=== PATIENT | female | born 1970 | race Caucasian/White ===

== ENCOUNTER 2020-10-01 12:15 | Outpatient (REF) | payer OTHER, SELFPAY ==
[2020-10-01 12:41] LABS: MANUAL DIFF FLAG NO
[2020-10-01 12:52] LABS: Basophils Absolute Auto 0.1 X10*3/uL (0.0-0.2); Basophils Percent Auto 1.1 % (0-2); Eosinophils Absolute Auto 0.2 X10*3/uL (0.0-0.4); Eosinophils Percent Auto 3.5 % (0-4); Hematocrit 45.3 % (37-47); Hemoglobin 15.2 g/dl (12.0-16.0); Imm Gran Abs Auto 0.01 X10*3/uL (0.00-0.03); Imm Gran Pct Auto 0.2 % (0.0-0.4); Lymphocytes Absolute Auto 2.6 X10*3/uL (1.2-4.9); Lymphocytes Percent Auto 38.7 % (20-40); Mean Corpuscular HGB Conc 33.6 g/dl (31.0-35.0); Mean Corpuscular Hemoglobin 31.3 pg (27.0-33.0); Mean Corpuscular Volume 93.2 fL (80-98); Mean Platelet Volume 10.7 fL (9.4-12.3); Monocytes Absolute Auto 0.4 X10*3/uL (0.1-1.2); Neutrophils Absolute Auto 3.4 X10*3/uL (2.0-8.3); Neutrophils Percent Auto 50.5 % (45-73); Platelet Count 198 X10*3/uL (160-400); Red Blood Count 4.86 X10*6/uL (4.20-5.50); Red Cell Distribution Width 13.5 % (11.0-16.0); White Blood Count 6.7 X10*3/uL (4.8-10.8)
[2020-10-01 13:10] LABS: Alanine Aminotransferase 8 U/L (0-31); Albumin Level 4.8 g/dL (3.5-5.0); Alkaline Phosphatase 57 U/L (39-117); Anion Gap 15 (12-20); Aspartate Amino Transferase 15 U/L (5-31); Bilirubin Total 0.7 mg/dL (0.0-1.0); Blood Urea Nitrogen 16 mg/dL (9-16); Calcium 9.8 mg/dL (8.4-10.2); Carbon Dioxide 23 mmol/L (22-29); Chloride 106 mmol/L (96-108); Cholesterol 192 mg/dL; Estimated Glomerular Filt Rate 58; Glucose Random 99 mg/dL (60-115); HDL Cholesterol 51 mg/dL; LDL Cholesterol Calculated 124 mg/dl; Potassium 4.5 mmol/L (3.3-5.1); Sodium 139 mmol/L (135-145); Total Protein 7.6 g/dL (6.5-8.0); Triglycerides 85 mg/dL
[2020-10-01 13:34] LABS: Free T4 (Free Thyroxine) 0.95 ng/dL (0.71-1.85); Thyroid Stimulating Hormone 0.76 uIU/mL (0.32-4.0); Vitamin D 25-OH Total 27.8 ng/mL (>30)
[2020-10-01 14:05] LABS: Glucose Urine UA NEG (NEG); Leukocyte Esterase Urine NEG (NEG); Nitrite Urine NEG (NEG); Specific Gravity - Urine 1.025 (1.005-1.025); Urine Blood NEG (NEG); Urine Ketones 5 MG/DL (NEG); Urine Protein 1+ MG/DL (NEG-TRACE)
[2020-10-01 14:15] LABS: Appearance Urine CLEAR; Color Urine AMBER
[2020-10-01 14:15] LABS: Folate 13.4 ng/mL (> or = 4.0); Vitamin B12 434 pg/mL (200-900)
[2020-10-01 14:48] LABS: Bacteria Urine 1+ /LPF; Mucus Urine 2+ /LPF; RBC Urine 0-2 /HPF (0); Squamous Epithelial Cell Urine 1+ /LPF; WBC Urine 0-2 /HPF (0-4)
== END 2020-10-01 12:16 | disposition home or self-care (01) ==
LOC: HO.LAB 12:15
PROVIDERS: PCP Internal Medicine; Visit Provider Internal Medicine
DX: Z00.00 Encounter for general adult medical examination without abnormal findings (principal); K21.9 Gastro-esophageal reflux disease without esophagitis; E78.00 Pure hypercholesterolemia, unspecified
CPT/HCPCS: 36415; 80053; 80061; 81001; 82306; 82607; 82746; 84439; 84443; 85025; 86900; 86901

== ENCOUNTER 2021-07-10 16:44 | Outpatient (REF) | payer OTHER, SELFPAY | END 2021-07-10 16:45 | disposition home or self-care (01) | LOC: HO.LNP 16:44 | PROVIDERS: Visit Provider Nurse Practitioner Family | DX: R10.9 Unspecified abdominal pain (principal) | CPT/HCPCS: 87086 ==

== ENCOUNTER 2022-12-27 15:03 | Outpatient (AMB) | payer OTHER, SELFPAY ==
[2022-12-27 15:07] VITALS: BP 102/62; PULSE 87; O2SAT 96; BMI 22.7
--- NOTE | 2022-12-27 15:07 | MHC.PC.OV ---
Vital Signs 12/27/22 15:07 Height 5 ft 4 in Weight 132 lb BMI 22.7 BP 102/62 Blood Pressure Location Lt brachial Position Sitting Pulse 87 Pulse Source Pulse Oximeter Temp Source Skin Pulse Oximetry (%) 96 Oxygen Delivery Method Room Air Intake Visit Reasons: annual PE Intake Note: Patient is here today for a physical. Allergies No Known Allergies Allergy (Verified 12/27/22 15:08) Medication List - Last Reconciled 12/27/22 by Andrew Garcia MD albuterol sulfate 90 mcg/actuation (ProAir HFA) 2 puffs inhalation Q4-6H PRN escitalopram oxalate 20 mg PO DAILY fluticasone propionate 110 mcg/actuation (Flovent HFA) 1 puff inhalation Q12H hydroxyzine HCl 25 mg PO BID PRN 30 days Tobacco use date assessed: 12/27/22 HPI annual PE HPI Details 52-year-old female with asthma generalized anxiety disorder coming in physical exam. Last seen in January 2022 blood work was requested. anxious and psychiatrist and therapist left. [facility] Medical History (Updated 12/27/22 @ 15:19 by Andrew Garcia MD) Allergic rhinitis Asthma Attention deficit disorder GERD (gastroesophageal reflux disease) Impaired glucose tolerance Left ear pain Left patella fracture Patellar dislocation Right ACL tear Surgical History No history of previous surgery Family History Mother No problems noted. Father No problems noted. Social History Housing: Apartment Alcohol intake: never Patient Tobacco Use Status: Never used Tobacco e-Cigarette/Vaping Use: Never Used service: No Current occupational status: unemployed Cognitive needs: No Hearing needs: No Vision needs: No Questionnaire PHQ-9 Over the last 2 weeks, how often have you been bothered by any of the following problems? 1. Little interest or pleasure in doing things: nearly every day 2. Feeling down, depressed, or hopeless: nearly every day 3. Trouble falling or staying asleep, or sleeping too much: nearly every day 4. Feeling tired or having little energy: nearly every day 5. Poor appetite or overeating: not at all 6. Feeling bad about yourself - or that you are a failure or have let yourself or your family down: not at all 7. Trouble concentrating on things, such as reading the newspaper or watching television: several days 8. Moving or speaking so slowly that other people could have noticed. Or the opposite - being so fidgety or restless that you have been moving around a lot more than usual: several days 9. Thoughts that you would be better off or of hurting yourself in some way: not at all Total score: 14 Depression Screening Interpretation: Positive Source: Developed by Drs. Wes Martines, Laz Hale and colleagues, with an educational val from [employer]. Thrive Questionnaire Date Thrive assessed: 10/27/21 WINNIE-7 AMB Questionnaire WINNIE-7 Date WINNIE - 7 assessed: 12/27/22 Feeling nervous, anxious, or on edge: 3 = Nearly every day Not being able to stop or control worryin = Nearly every day Worrying too much about different things: 3 = Nearly every day Trouble relaxin = Nearly every day Being so restless that it is hard to sit still: 3 = Nearly every day Becoming easily annoyed or irritable: 3 = Nearly every day Feeling afraid as if something awful might happen: 3 = Nearly every day Total WINNIE-7 score (0-4 normal; 5-9 mild; 10-14 moderate; 15-21 severe): 21 Source: Developed by Drs. Wes Martines, Laz Hale and colleagues, with an educational val from [employer]. Review of Systems Const Denies poor appetite and Denies weakness Eyes Denies no additional complaints ENT Reports Normal hearing present, Denies dizziness, Denies nasal congestion, Denies tinnitus and Denies sore throat Card Denies chest pain, Denies syncope, Denies rapid heart rate and Denies dyspnea Resp Denies cough and Denies dyspnea GI Denies change in stool character, Reports constipation, Denies diarrhea, Denies nausea and Denies vomiting Denies urinary frequency, Denies difficulty voiding and Denies dysuria Neuro Reports Normal hearing present, Denies confusion, Denies dizziness, Denies syncope and Denies weakness Psych Denies confusion Physical exam (Primary Care) Vital Signs: Oxygen Delivery Method Room Air 12/27/22 15:07 BMI result Body Mass Index 22.7 Tobacco/Smoking Status: Tobacco use Status Tobacco use date assessed 10/27/21 02/05/22 15:33 Patient Tobacco Use Status Never used Tobacco 02/05/22 15:33 e-Cigarette/Vaping Use Never Used 02/05/22 15:33 Depression Screening Interpretation: Positive Thrive Assessment: Date of Thrive Assessment Date Thrive assessed 10/27/21 02/05/22 15:33 Const General: No confusion Orientation/consciousness: No confusion HENMT Head: Yes normocephalic Ears: external ears normal and TM's normal bilaterally Face and sinus: Yes normal facial exam Mouth: moist mucous membranes Throat: Yes tonsils normal Eyes Conjunctivae: conjunctivae normal Pupils: Equal, round and reactive pupils present and Pupil accommodation reflex normal Direct Ophthalmoscopy: normal light reflex Neck Neck: No lymphadenopathy Thyroid: Thyroid normal Chest Chest palpation & inspection: normal inspection of the chest Resp Effort & Inspection: normal respiratory effort and no audible wheezes Auscultation: clear to auscultation bilaterally, no crackles, no wheezes and lung sounds not diminished Cardio Rate: regular rate Rhythm: regular rhythm Peripheral pulses: radial pulses present and dorsalis pedis present GI Palpation (GI): no masses Auscultation: normal bowel sounds and normoactive bowel sounds Rectal Exam - Female: deferred Skin General skin exam: no rashes or lesions noted Rashes: no rashes Neuro General: No confusion Cranial nerves: Yes Equal, round and reactive pupils present and Yes Normal hearing present Cognition (Neuro): normal cognition Gait exam (Neuro): Normal gait present Motor exam (neuro): 5/5 motor strength present throughout Deep tendon reflexes (DTR's): Right brachioradialis reflex intensity grade: 2+, Left brachioradialis reflex intensity grade: 2+, Right patellar reflex intensity grade: 2+ and Left patellar reflex intensity grade: 2+ Extrem General: No edema Assessment and Plan Assessment & Plan (1) Annual physical exam: Code(s): Z00.00 - Encounter for general adult medical examination without abnormal findings (2) GERD (gastroesophageal reflux disease): Code(s): K21.9 - Gastro-esophageal reflux disease without esophagitis Qualifiers: Esophagitis presence: without esophagitis Qualified Code(s): K21.9 - Gastro-esophageal reflux disease without esophagitis Plan: Avoid the foods that causes that usually spicy foods, tomato products, juices, coffee, soda and foods that your sensitive to. After eating do not lie down, allow 3-4 hours before in lie down. And keep the head of bed above 30 degrees to avoid the acid from going up. (3) Asthma: Code(s): J45.909 - Unspecified asthma, uncomplicated Qualifiers: Asthma complication type: uncomplicated Asthma persistence: intermittent Asthma severity: mild Qualified Code(s): J45.20 - Mild intermittent asthma, uncomplicated Plan: Continue with inhaler as needed (4) Generalized anxiety disorder: Comment: [place] [facility] Code(s): F41.1 - Generalized anxiety disorder Plan: Continue with counseling and therapy (5) Colon cancer screening: Code(s): Z12.11 - Encounter for screening for malignant neoplasm of colon Plan: Reminded about colonoscopy (6) Back pain: Code(s): M54.9 - Dorsalgia, unspecified (7) Constipation: Code(s): K59.00 - Constipation, unspecified Orders: Orders XR chest 2V Today M54.9 - Dorsalgia, unspecified Referrals Gastroenterology Referral K21.9 - Gastro-esophageal reflux disease without esophagitis, Z12.11 - Encounter for screening for malignant neoplasm of colon Medications: New sennosides-docusate sodium 8.6-50 mg (Senna Plus) 2 tab-caps (2 x 8.6-50 mg) PO BEDTIME 60 caps 2RF K59.00 - Constipation, unspecified escitalopram oxalate 20 mg PO DAILY 90 tabs 1RF F41.1 - Generalized anxiety disorder Changed From hydroxyzine HCl 25 mg PO BID 30 days PRN 60 tabs 1RF anxiety F41.1 - Generalized anxiety disorder To hydroxyzine HCl 25 mg PO BID 90 days PRN 180 tabs 0RF anxiety F41.1 - Generalized anxiety disorder Coding Level of Care Code Est Pt Prev Care 40-64y(69103) Diagnoses Annual physical exam Z00.00 GERD (gastroesophageal reflux disease) K21.9 Esophagitis presence: without esophagitis Asthma J45.20 Asthma complication type: uncomplicated Asthma persistence: intermittent Asthma severity: mild Generalized anxiety disorder F41.1 Colon cancer screening Z12.11 Back pain M54.9 Constipation K59.00 Additional Codes PHQ-9 - 48919 - PHQ-9 Billing: Y ([id number])
== END 2022-12-27 15:33 | disposition home or self-care (01) ==
PROVIDERS: PCP Internal Medicine; Visit Provider Internal Medicine
DX: Z00.00 Encounter for general adult medical examination without abnormal findings (principal); K21.9 Gastro-esophageal reflux disease without esophagitis; J45.20 Mild intermittent asthma, uncomplicated; F41.1 Generalized anxiety disorder; Z12.11 Encounter for screening for malignant neoplasm of colon; M54.9 Dorsalgia, unspecified; K59.00 Constipation, unspecified
CPT/HCPCS: 99396

== ENCOUNTER 2024-08-21 14:15 | Outpatient (AMB) | payer OTHER, SELFPAY ==
[2024-08-21 14:21] VITALS: BP 102/70; PULSE 68; O2SAT 98; BMI 23.4
--- NOTE | 2024-08-21 14:21 | MHC.PC.OV ---
Vital Signs 08/21/24 14:21 Height 5 ft 4 in Weight 136 lb 4 oz BMI 23.4 BP 102/70 Blood Pressure Location Lt brachial Position Sitting Pulse 68 Pulse Source Pulse Oximeter Pulse Oximetry (%) 98 Oxygen Delivery Method Room Air Intake Visit Reasons: pain all over body Health Education Specialist Required: No Accompanied by: Self / Same As Patient Allergies No Known Allergies Allergy (Verified 08/21/24 14:22) Tobacco use date assessed: 08/21/24 Dental Screening Dental Screen Date: 08/21/24 Did you have a dental visit in the last 12 months?: Yes Did you have a dental problem in the last 6 months where you did not have access to dental care?: No Was dental information given to patient?: Patient has dentist HPI pain all over body HPI Details pain R calf and posterior achilles and R knee . pain states had dislocation before . [facility] Medical History (Updated 08/21/24 @ 14:45 by Andrew Garcia MD) Left ear pain Left patella fracture Right ACL tear Patellar dislocation Impaired glucose tolerance GERD (gastroesophageal reflux disease) Attention deficit disorder Allergic rhinitis Asthma Surgical History No history of previous surgery Family History Mother No problems noted. Father No problems noted. Social History Housing: Apartment Alcohol intake: never Patient Tobacco Use Status: Never used Tobacco e-Cigarette/Vaping Use: Never Used service: No Current occupational status: unemployed Cognitive needs: No Hearing needs: No Vision needs: No Questionnaire PHQ-9 Over the last 2 weeks, how often have you been bothered by any of the following problems? 1. Little interest or pleasure in doing things: nearly every day 2. Feeling down, depressed, or hopeless: nearly every day 3. Trouble falling or staying asleep, or sleeping too much: nearly every day 4. Feeling tired or having little energy: nearly every day 5. Poor appetite or overeating: not at all 6. Feeling bad about yourself - or that you are a failure or have let yourself or your family down: not at all 7. Trouble concentrating on things, such as reading the newspaper or watching television: several days 8. Moving or speaking so slowly that other people could have noticed. Or the opposite - being so fidgety or restless that you have been moving around a lot more than usual: several days 9. Thoughts that you would be better off or of hurting yourself in some way: not at all Total score: 14 Depression Screening Interpretation: Positive Depression Screening Done: Yes Source: Developed by Drs. Wes Martines, Vanesa Griffin, Laz Franco and colleagues, with an educational val from [employer]. Thrive Questionnaire Date Thrive assessed: 08/21/24 I am a: Patient What is your living situation today?: I have a steady place to live Within the past 12 months, did the food you bought not last and you didn't have the money to get more?: Never true Within the past 12 months, did you worry whether your food would run out before you got money to buy more?: Never true Do you have trouble paying for medicines?: No Do you have trouble getting transportation to medical appointments?: No Do you have trouble paying your heating and electricity bill?: No Do you have trouble taking care of your child, family member or friend?: No Do you have trouble with day-to-day activities such as bathing, preparing meals, shopping, managing finances, etc.?: No Are you currently unemployed and looking for a job?: No Are you interested in more education?: No Please select the resources that you would like help with: None Currently or been in a relationship where the following occur: No concerns reported THRIVE Score: 0 AUDIT C Alcohol Use Questionnaire (AUDIT-C) 1. How often do you have a drink containing alcohol?: Never 2. How many drinks containing alcohol do you have on a typical day when you are drinking?: 1 or 2 (none) 3. How often do you have six or more drinks on one occasion?: Never Total Score: 0 Score Reviewed/Action Taken: Yes WINNIE-7 AMB Questionnaire WINNIE-7 Date WINNIE - 7 assessed: 08/21/24 Feeling nervous, anxious, or on edge: 3 = Nearly every day Not being able to stop or control worryin = Nearly every day Worrying too much about different things: 3 = Nearly every day Trouble relaxin = Nearly every day Being so restless that it is hard to sit still: 3 = Nearly every day Becoming easily annoyed or irritable: 3 = Nearly every day Feeling afraid as if something awful might happen: 3 = Nearly every day Total WINNIE-7 score (0-4 normal; 5-9 mild; 10-14 moderate; 15-21 severe): 21 Source: Developed by Drs. Wes Martines, Vanesa Griffin, Laz Franco and colleagues, with an educational val from [employer]. Physical exam (Primary Care) Vital Signs: Last Vital Signs Pulse 68 08/21/24 14:21 BP 102/70 08/21/24 14:21 Pulse Ox 98 08/21/24 14:21 Oxygen Delivery Method Room Air 08/21/24 14:21 BMI result Body Mass Index 23.4 Tobacco/Smoking Status: Tobacco use Status Tobacco use date assessed 08/21/24 08/21/24 14:28 Patient Tobacco Use Status Never used Tobacco 08/21/24 14:28 e-Cigarette/Vaping Use Never Used 08/21/24 14:28 PHQ-9: PHQ-9 Score PHQ-9: Total score 14 08/21/24 14:36 Depression Screening Interpretation: Positive Thrive Assessment: Date of Thrive Assessment Date Thrive assessed 08/21/24 08/21/24 14:28 Currently or been in a relationship where the following occur: No concerns reported Const General: alert; No acute distress Eyes Conjunctivae: conjunctivae normal Resp Auscultation: clear to auscultation bilaterally Cardio Rate: regular rate Rhythm: regular rhythm GI Inspection: Yes normal to inspection Extrem General: Yes normal to inspection and No edema Coding Level of Care Code Est Pt Level 4 (33156) Complex EM visit Add On G2211 Diagnoses Mild intermittent asthma without complication J45.20 Asthma complication type: uncomplicated Asthma persistence: intermittent Asthma severity: mild Gastroesophageal reflux disease without esophagitis K21.9 Esophagitis presence: without esophagitis Generalized anxiety disorder F41.1 Colon cancer screening Z12.11 Achilles tendinitis of right lower extremity M76.61 Knee pain, right M25.561 Palpitations R00.2 Assessment & Plan Assessment & Plan (1) Asthma: Code(s): J45.909 - Unspecified asthma, uncomplicated Category: Medical Qualifiers: Asthma complication type: uncomplicated Asthma persistence: intermittent Asthma severity: mild Qualified Code(s): J45.20 - Mild intermittent asthma, uncomplicated Plan: Patient on albuterol and Flovent. (2) GERD (gastroesophageal reflux disease): Code(s): K21.9 - Gastro-esophageal reflux disease without esophagitis Category: Medical Qualifiers: Esophagitis presence: without esophagitis Qualified Code(s): K21.9 - Gastro-esophageal reflux disease without esophagitis Plan: Avoid the foods that causes that usually spicy foods, tomato products, juices, coffee, soda and foods that your sensitive to. After eating do not lie down, allow 3-4 hours before in lie down. And keep the head of bed above 30 degrees to avoid the acid from going up. (3) Generalized anxiety disorder: Comment: [facility] Code(s): F41.1 - Generalized anxiety disorder Category: Medical Plan: Continue with counseling and therapy on Lexapro 20 mg once a day (4) Colon cancer screening: Code(s): Z12.11 - Encounter for screening for malignant neoplasm of colon Category: Medical (5) Achilles tendinitis of right lower extremity: Code(s): M76.61 - Achilles tendinitis, right leg Category: Medical (6) Knee pain, right: Code(s): M25.561 - Pain in right knee Category: Medical (7) Palpitations: Code(s): R00.2 - Palpitations Category: Medical Plan History of Present Illness The patient is a 54-year-old female presenting for a follow-up on musculoskeletal and cardiac concerns. She has a known history of ACL injury in her right knee, which was never surgically corrected, leading to episodic instability and pain. This has notably affected her function, particularly during stair climbing. Additionally, she reports intermittent right Achilles tendon pain lasting several weeks, without clear inciting trauma or exacerbation from work-related activities. Chronic lower back pain, likely of sacral origin, shows a recent increase in severity and impacts her respiratory comfort during episodes. Daily palpitations, a recurrent issue since childhood, have reemerged with increased frequency and disruption without a previous clear etiological diagnosis. 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 - Physical activity: Involves moderate caregiving tasks, no noted excessive or strenuous physical activities Review of Systems - Musculoskeletal: Reports pain in the right knee and ankle, instability, and prior dislocation history - Cardiovascular: Reports daily episodes of palpitations, irregular heartbeat - Back: Reports periodic severe locking pain in the lower back - General: Reports feeling nervous about heart symptoms Physical Exam Results Plan For the identified musculoskeletal issues, an x-ray for the right knee will complement targeted physical therapy aimed at improving joint stability post-ACL injury. Achilles tendon pain lacks overt signs of tear or rupture, so conservative management will be observed without immediate imaging. Lower back pain will be further characterized by the x-ray to determine potential arthritic changes. The patient's cardiac arrhythmias will be analyzed using a Holter monitor, and concurrent documentation of episodes will aid in identifying rhythms of concern. Blood panels will provide insight into potential contributory systemic conditions. Asthma and GERD management regimens will be maintained as per current prescriptions while awaiting further diagnostics. Patient was informed and verbally consented to the use of an ambient scribe for clinic note documentation during this visit. Discussion Notes I discussed with the patient the differential diagnoses for her musculoskeletal pain and the potential need for imaging and physical therapy. The knee x-ray will help assess structural concerns post-ACL injury, and physical therapy should support muscle strengthening around the knee joint. For cardiac symptoms, I recommended a Holter monitor to evaluate her frequent palpitations, explaining this would help determine any need for further cardiac evaluation. I advised on the importance of maintaining a symptom diary for correlation. The potential for arthritis in her lower back prompted the decision for imaging. I recommended comprehensive blood work to understand systemic contributors. We discussed preventive health, including the mammogram's status, colonoscopy referral, and immunization status, with an understanding of her preferences regarding vaccines. Lastly, the need for routine reviewal of medication compliance, particularly regarding GERD and asthma management, was reinforced. Patient Instructions - Attend scheduled x-ray and physical therapy sessions - Undergo the Holter monitor test and maintain an accompanying symptom diary - Perform the recommended fasting blood work - Continue taking asthma (Albuterol, Flovent) and GERD medications as prescribed - Follow up on colonoscopy referral and schedule accordingly - Be attentive to any worsening symptoms and seek care as needed - Practice careful safety measures during flu, COVID, and RSV seasons Orders: Orders PT Evaluation and Treatment Today M25.561 - Pain in right knee, M76.61 - Achilles tendinitis, right leg Complete Blood Count Auto Diff Today F41.1 - Generalized anxiety disorder Free T4 (Free Thyroxine) Today F41.1 - Generalized anxiety disorder Thyroid Stimulating Hormone Today F41.1 - Generalized anxiety disorder Vitamin B12 and Folate Today F41.1 - Generalized anxiety disorder XR knee RT 2V Today M25.561 - Pain in right knee XR lumbar spine 2-3V Today M54.9 - Dorsalgia, unspecified Comprehensive Met. Panel Today F41.1 - Generalized anxiety disorder Lipid Panel Today E78.00 - Pure hypercholesterolemia, unspecified, F41.1 - Generalized anxiety disorder Vitamin D 25-OH Total Today F41.1 - Generalized anxiety disorder ECG 3 day holter monitor Today R00.2 - Palpitations Referrals Gastroenterology Referral Z12.11 - Encounter for screening for malignant neoplasm of colon
--- OUTSIDE RECORDS SUMMARY | 2024-08-21 17:30 | XMS_ITS | Patient Health Record ---
Author Organization [employer] [facility] Address [address] [place] [address] Care Team Providers Care Training Coordinator Name Role Phone JOSE GAMBOA M.D. Primary Care Provider Ettaa DAVID Boothe Unavailable [phone] Reason For Referral No Information Medications Medication SIG (Take, Route, Frequency, Duration) Notes Start Date End Date Status ProAir HFA 108 (90 Base) MCG/ACT TAKE 2 PUFFS BY MOUTH EVERY 6 HOURS Inhalation for 25 Active Omeprazole 20 MG TAKE 1 CAPSULE BY MO UTH EVERY DAY Oral for 30 Active hydrOXYzine HCl 25 MG TAKE 1 3 TABLETS B Y MOUTH ONCE DAILY NEEDED FOR 30 DAYS Oral for 30 Active Escitalopram Oxalate 10 MG TAKE 1 TABLET BY MOUTH EVERY DAY Oral for 30 Active Clobetasol Propionate 0.05 % 1 application to affected area Externally twice weekly 12/28/2018 Active Social History Tobacco Use: Social History Observation Description Date Details (start date - stop date) Never Smoker NA - NA Tobacco Use/Smoking Question Answer Notes Are you a nonsmoker Alcohol Screen (Audit-C) Question Answer Notes Did you have a drink containing alcohol in the p ast year? No Points 0 Interpretation Negative Sexual History Question Answer Notes Had sex in the past 12 months (vaginal, oral, or anal)? No Have you ever had a Sexually transmitted disease ? 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 Plan Of Treatment Pending Test Test Name Order Date THIN PREP,HPV,OBDULIO IF HPV+ (>29YR)(DIAG) 11/28/2018 MM Digital Screening Mammogram 3D 2019 MM Digital Screening Mammogram 3D 2018 Insurance Providers Payer Name Payer Address Payer Phone Subscriber Number Group Number Insured Name Patient Relationship to Insured Coverage Start Date Coverage End Date [facility] [address] [address] [place] [id number] [phone] [id number] VERONICA PEDRAZA Self - patient is the insured Medical (General) History Medical History History ICD Code Disorder of breast, unspecified N64.9 Other asthma J45.998 Attention-deficit hyperactivity disorder , unspecified type F90.9 Gastro-esophageal reflux disease with es ophagitis K21.0 Pruritus vulvae L29.2 Other specified noninflammatory disorder s of vulva and perineum N90.89 Surgical History Surgery Date(Month/Year) Left Breast Biopsy Hospitalization History Reason Date(Month/Year) 2 Vaginal Deliveries
--- OUTSIDE RECORDS SUMMARY | 2024-08-21 17:30 | XMS_ITS | Clinical Summary ---
Author Organization [employer] [facility] Address [address] 7[address] [place] [address] Care Team Providers Care Unclaimed Property Manager Name Role Phone Unavailable Primary Care Provider Unavailabl e Allergies No known active allergies Medications escitalopram (Lexapro) 20 MG tablet 07/04/2023 Active hydrOXYzine HCl (Atarax) 25 MG tablet 07/07/2023 Active Social History Tobacco Use Types Packs/Day Years Used Date Smoking Tobacco: Never Passive Smoke Exposure: Never Smokeless Tobacco: Never Tobacco Cessation:Counseling Given: No Alcohol Use Standard Drinks/Week Comments Never 0 (1 standard drink = 0.6 oz pur e alcohol) Comments Unknown Sex and Gender Information Value Date Recorded Sex Assigned at Female 05/10/2023 12:02 PM EST Legal Sex Female 11:57 AM EST Gender Identity Female 05/10/2023 12:02 PM EST Sexual Orientation Choose not to disclose 2022 12:02 PM EST Last Filed Vital Signs Vital Sign Reading Time Taken Comments Blood Pressure 124/76 05/10/2023 1:21 PM EST Pulse - - Temperature - - Respiratory Rate - - Oxygen Saturation - - Inhaled Oxygen Concentration - - Weight - - Height - - Body Mass Index - - Plan of Treatment Health Maintenance Due Date Last Done Comments CT Colonography 1969 Colonoscopy 1969 Colorectal Cancer Screening 1969 Dental Oral Exam 1969 Dental Prophylaxis 1969 Dental X-Ray: Bitewings 1969 Depression Screening 1969 FIT DNA/Cologuard 1969 FIT 1969 FOBT 1969 HIV Screening 1969 SDOH Screening 1969 Sigmoidoscopy 1969 Alcohol/Substance Use Screening 1981 Hepatitis C Screening 1987 Hepatitis B Vaccines (1 of 3 - 19+ 3-dose series) 1988 Pap Smear 1990 Cervical Cancer Screening 1999 HPV/Cotest 1999 Mammogram 2009 Pneumococcal Vaccine: 50+ Years (1 of 1 - PCV) 2019 Zoster Vaccines (1 of 2) 2019 COVID-19 Vaccine (1 - 2023-2 5 season) 2024 Influenza Vaccine (#1) 2024 9, 03/24/2016 Tobacco Screening 07/11/2024 07/11/2023 DTaP/Tdap/Td Vaccines (2 - T d or Tdap) 03/24/2026 03/24/2016 Dental X-Ray: Full Mouth 05/11/2026 05/10/2023 RSV Patients and Patients Aged 60 years or older (1 - 1-dose 75+ series) 2044 HIB Vaccines Aged Out No longer eligi ble based on patient's age to complete this topic HPV Vaccines Aged Out No longer eligi ble based on patient's age to complete this topic Hepatitis A Vaccines Aged Out No long er eligible based on patient's age to complete this topic IPV Vaccines Aged Out No longer eligi ble based on patient's age to complete this topic Meningococcal Vaccine Aged Out No brayan ari eligible based on patient's age to complete this topic RSV under 20 months Aged Out No longe r eligible based on patient's age to complete this topic Rotavirus Vaccines Aged Out No longer eligible based on patient's age to complete this topic Procedures Procedure Name Priority Date/Time Associated Diagnosis Comments PANORAMIC RADIOGRAPHIC IMAGE Routine 05/10/2023 1:00 PM EST from Last 3 Months or Most Recently Relevant to Health Maintenance Insurance [facility] MEDICAID STAND ADULT
--- OUTSIDE RECORDS SUMMARY | 2024-08-21 17:30 | XMS_ITS | Clinical Summary ---
Author Organization [employer] [facility] ity Address [address] [place] [address] Care Team Providers Care Nursing Care Partner Name Role Phone Andrew Garcia MD Primary Care Provider [phone] Surgical History Surgery Date Site/Laterality Comments OTHER SURGICAL HISTORY PROCEDURE: DENIES PREVIOUS SURGERY Family History Medical History Relation Name Comments Breast cancer Neg Hx Colon cancer Neg Hx Ovarian cancer Neg Hx Uterine cancer Neg Hx Relation Name Status Comments Brother 1 Alive Brother 2 Alive Father Alive Mother Alive Sister 1 Alive Sister 2 Alive Sister 3 Alive Sister 4 Alive Sister 5 Alive Sister 6 Alive Social History Tobacco Use Types Packs/Day Years Used Date Smoking Tobacco: Light Smoker Alcohol Use Standard Drinks/Week Comments Yes 0 (1 standard drink = 0.6 oz pur e alcohol) Comments Unknown Sex and Gender Information Value Date Recorded Sex Assigned at Not on file Legal Sex Female 1:00 AM EST Gender Identity Not on file Sexual Orientation Not on file Obstetrics History Plan of Treatment Health Maintenance Due Date Last Done Comments Breast Cancer Screening 1969 DTaP,Tdap,and Td Vaccines (1 - Tdap) 1988 Hepatitis B Vaccines (1 of 3 - 19+ 3-dose series) 1988 Cervical Cancer Screening: P ap Smear 1990 Pneumococcal Vaccine: 50+ Ye ars (1 of 1 - PCV) 2019 Zoster Vaccines (1 of 2) 2019 COVID-19 Vaccine (2023-2 5 season) 2024 Influenza Vaccine (#1) 2024 HIB Vaccines Aged Out No longer eligi [...] on patient's age to complete this topic MMR Vaccines Aged Out No longer eligi ble based on patient's age to complete this topic Meningococcal ACWY Vaccine Aged Out N o longer eligible based on patient's age to complete this topic Meningococcal B Vacine Aged Out No lo nger eligible based on patient's age to complete this topic Pneumococcal Vaccine: Pediat rics (0 to 5 Years) and At-Risk Patients (6 to 64 Years) Aged Out No longer eligible b ased on patient's age to complete this topic RSV Immunization Patients Un maura 20 months Aged Out No longer eligible b ased on patient's age to complete this topic Varicella Vaccines Aged Out No longer eligible based on patient's age to complete this topic Care Teams Nursing Care Partner Relationship Specialty Start Date End Date Andrew Garcia MD [address] [place] [address] [address] [facility] [place] [address] PCP - General Internal Medicine 01/02/14
== END 2024-08-21 14:48 | disposition home or self-care (01) ==
LOC: HO.HMCH 14:16
PROVIDERS: PCP Internal Medicine; Visit Provider Internal Medicine
DX: J45.20 Mild intermittent asthma, uncomplicated (principal); K21.9 Gastro-esophageal reflux disease without esophagitis; F41.1 Generalized anxiety disorder; Z12.11 Encounter for screening for malignant neoplasm of colon; M76.61 Achilles tendinitis, right leg; M25.561 Pain in right knee; R00.2 Palpitations

== ENCOUNTER 2024-08-21 14:15 | Outpatient (REF) | payer OTHER, SELFPAY ==
--- NOTE | ~2024-08-21 | XR_ITS ---
EXAMINATION: XR LUMBOSACRAL SPINE CLINICAL INFORMATION: M54.9 - Dorsalgia, unspecified COMPARISON: None available. TECHNIQUE: Three views of the lumbosacral spine. FINDINGS: Rudimentary ribs at T12. 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 Spina bifida occulta S1. No acute cortical disruption or gross malalignment. Mild multilevel marginal osteophyte formation and endplate sclerosis lower thoracic and upper lumbar spine. No lytic or blastic lesions. XR/XR lumbar spine 2-3V IMPRESSION: Castellvi type III sacralization. Multilevel spondylosis without acute fracture or listhesis. Electronically signed by: Kris [place] MD 08/22/2024 08:15 AM EDT
--- NOTE | ~2024-08-21 | XR_ITS ---
CLINICAL HISTORY: M25.561 - Pain in right knee 2 view right knee Comparison: None Findings: Bones intact. No dislocations. No significant loss of joint space, osteophytes, or erosions. No joint effusion. No radiopaque foreign body. IMPRESSION: 1. No acute findings. 2. No significant degenerative change This document has been electronically signed by: Maynor Miller MD on 08/23/2024 07:13:19
--- OUTSIDE RECORDS SUMMARY | 2024-08-21 18:17 | XMS_ITS | Clinical Summary ---
Author Organization [employer] [facility] ity Address [address] [place] [address] Care Team Providers Care Seam Presser Name Role Phone Andrew Garcia MD Primary Care Provider [phone] Surgical History Surgery Date Site/Laterality Comments OTHER [...] age to complete this topic Care Teams Seam Presser Relationship Specialty Start Date End Date Andrew Garcia MD [address] [place] [address] [address] [facility] [place] [address] PCP - General Internal Medicine 01/02/14
--- OUTSIDE RECORDS SUMMARY | 2024-08-21 18:17 | XMS_ITS | Clinical Summary ---
Author Organization [employer] [facility] Address [address] [facility] [address] 7t [place] [address] Care Team Providers Care Catechist Name Role Phone Unavailable Primary Care Provider [...] Most Recently Relevant to Health Maintenance Insurance [facility] MEDICAID STAND ADULT
== END 2024-08-21 14:16 | disposition home or self-care (01) ==
LOC: HO.XRAY 14:15
PROVIDERS: PCP Internal Medicine; Visit Provider Internal Medicine
DX: F41.1 Generalized anxiety disorder (principal); M54.9 Dorsalgia, unspecified; M25.561 Pain in right knee; J45.20 Mild intermittent asthma, uncomplicated; K21.9 Gastro-esophageal reflux disease without esophagitis; M76.61 Achilles tendinitis, right leg; R00.2 Palpitations
CPT/HCPCS: 72100; 73560; 99212

== ENCOUNTER → 2024-08-21 15:07 | Outpatient (BNV) | payer OTHER, SELFPAY | PROVIDERS: PCP Internal Medicine; Visit Provider Radiology Diagnostic Radiology | DX: M25.561 Pain in right knee (principal) | CPT/HCPCS: 72100; 73560 ==

== ENCOUNTER 2024-09-10 06:02 | Outpatient (REF) | payer OTHER, SELFPAY ==
[2024-09-10 06:17] LABS: MANUAL DIFF FLAG NO
[2024-09-10 07:08] LABS: Basophils Absolute Auto 0.1 X10*3/uL (0.0-0.2); Eosinophils Absolute Auto 0.3 X10*3/uL (0.0-0.4); Eosinophils Percent Auto 4.2 % (0-4); Hemoglobin 12.9 g/dl (12.0-16.0); Imm Gran Abs Auto 0.03 X10*3/uL (0.00-0.03); Imm Gran Pct Auto 0.4 % (0.0-0.4); Lymphocytes Absolute Auto 2.9 X10*3/uL (1.2-4.9); Lymphocytes Percent Auto 41.9 % (20-40); Mean Corpuscular HGB Conc 33.9 g/dl (31.0-35.0); Mean Corpuscular Hemoglobin 32.2 pg (27.0-33.0); Mean Corpuscular Volume 94.8 fL (80.0-98.0); Mean Platelet Volume 9.6 fL (9.4-12.3); Monocytes Absolute Auto 0.4 X10*3/uL (0.1-1.2); Monocytes Percent Auto 6.4 % (2-11); Neutrophils Absolute Auto 3.2 x10*3/uL (2.0-8.3); Neutrophils Percent Auto 46.1 % (45-73); Platelet Count 237 X10*3/uL (160-400); Red Blood Count 4.01 X10*6/uL (4.20-5.50); Red Cell Distribution Width 13.2 % (11.0-16.0); White Blood Count 6.9 X10*3/uL (4.8-10.8)
[2024-09-10 07:30] LABS: Alanine Aminotransferase 17 U/L (0-31); Alkaline Phosphatase 56 U/L (39-117); Anion Gap 11 (12-20); Aspartate Amino Transferase 19 U/L (5-31); Bilirubin Total 0.2 mg/dL (0.0-1.0); Blood Urea Nitrogen 16 mg/dL (9-16); Calcium 8.9 mg/dL (8.4-10.2); Carbon Dioxide 24 mmol/L (22-29); Chloride 110 mmol/L (96-108); Cholesterol 163 mg/dL (<200); Estimated Glomerular Filt Rate > 60; Glucose Random 93 mg/dL (60-115); HDL Cholesterol 66 mg/dL (>40); LDL Cholesterol Calculated 83 mg/dL (<100); Sodium 141 mmol/L (135-145); Total Protein 6.7 g/dL (6.5-8.0); Triglycerides 73 mg/dL (<150)
[2024-09-10 07:47] LABS: Free T4 (Free Thyroxine) 0.96 ng/dL (0.71-1.85); Thyroid Stimulating Hormone 1.41 uIU/mL (0.32-4.0); Vitamin D 25-OH Total 32.5 ng/mL (>30)
[2024-09-10 08:00] LABS: Vitamin B12 353 pg/mL (200-900)
== END 2024-09-10 06:03 | disposition home or self-care (01) ==
LOC: HO.LAB 06:02
PROVIDERS: PCP Internal Medicine; Visit Provider Internal Medicine
DX: F41.1 Generalized anxiety disorder (principal); E78.00 Pure hypercholesterolemia, unspecified
CPT/HCPCS: 36415; 80053; 80061; 82306; 82607; 82746; 84439; 84443; 85025

== ENCOUNTER 2024-09-18 11:33 | Outpatient (AMB) | payer OTHER, SELFPAY ==
--- NOTE | 2024-09-18 11:34 | A.OFFPC_ITS ---
Vital Signs 09/18/24 11:35 Height 5 ft 4 in Weight 138 lb 8 oz BMI 23.8 BP 124/62 Blood Pressure Location Lt brachial Position Sitting Pulse 63 Pulse Source Pulse Oximeter Temp 96.9 F Temp Source Temporal Artery Scan Pulse Oximetry (%) 98 Oxygen Delivery Method Room Air Intake Visit Reasons: PE Intake Note: Patient is here today for a physical. Machining Department Supervisor Required: No Pairer Odds: Not Required per policy Accompanied by: Self / Same As Patient Allergies No Known Allergies Allergy (Verified 09/18/24 11:35) Medication List - Last Reconciled 09/18/24 by Andrew Garcia MD albuterol sulfate 90 mcg/actuation 2 puffs inhalation Q4-6H PRN escitalopram oxalate 20 mg PO DAILY fluticasone propionate 110 mcg/actuation 1 puff inhalation Q12H hydroxyzine HCl 25 mg PO BID PRN 90 days sennosides-docusate sodium 8.6-50 mg (Senna Plus) 2 tab-caps (2 x 8.6-50 mg) PO BEDTIME Tobacco use date assessed: 09/18/24 Dental Screening Dental Screen Date: 08/21/24 [facility] Medical History (Updated 08/21/24 @ 14:45 by Andrew Garcia MD) Left ear pain Left patella fracture Right ACL tear Patellar dislocation Impaired glucose tolerance GERD (gastroesophageal reflux disease) Attention deficit disorder Allergic rhinitis Asthma Surgical History No history of previous surgery Family History Mother No problems noted. Father No problems noted. Social History Housing: Apartment Alcohol intake: never Patient Tobacco Use Status: Never used Tobacco e-Cigarette/Vaping Use: Never Used Second Hand Smoke Exposure: No service: No Current occupational status: unemployed Cognitive needs: No Hearing needs: No Vision needs: No Questionnaire Thrive Questionnaire Date Thrive assessed: 09/17/24 I am a: Patient What is your living situation today?: I have a steady place to live Within the past 12 months, did the food you bought not last and you didn't have the money to get more?: I choose not to answer this question Within the past 12 months, did you worry whether your food would run out before you got money to buy more?: I choose not to answer this question Do you have trouble paying for medicines?: Yes Do you have trouble getting transportation to medical appointments?: No Do you have trouble paying your heating and electricity bill?: Yes Do you have trouble taking care of your child, family member or friend?: No Do you have trouble with day-to-day activities such as bathing, preparing meals, shopping, managing finances, etc.?: No Are you currently unemployed and looking for a job?: No Are you interested in more education?: No Please select the resources that you would like help with: Utilities Currently or been in a relationship where the following occur: No concerns reported THRIVE Score: 1 AUDIT C Alcohol Use Questionnaire (AUDIT-C) 1. How often do you have a drink containing alcohol?: Monthly or less 2. How many drinks containing alcohol do you have on a typical day when you are drinking?: 1 or 2 3. How often do you have six or more drinks on one occasion?: Never Total Score: 1 WINNIE-7 AMB Questionnaire WINNIE-7 Date WINNIE - 7 assessed: 08/21/24 Feeling nervous, anxious, or on edge: 3 = Nearly every day Not being able to stop or control worryin = Nearly every day Worrying too much about different things: 3 = Nearly every day Trouble relaxin = Nearly every day Being so restless that it is hard to sit still: 3 = Nearly every day Becoming easily annoyed or irritable: 3 = Nearly every day Feeling afraid as if something awful might happen: 3 = Nearly every day Total WINNIE-7 score (0-4 normal; 5-9 mild; 10-14 moderate; 15-21 severe): 21 Source: Developed by Drs. Wes Martines, Vanesa Griffin, Laz Franco and colleagues, with an educational val from [email or web address]. Physical exam (Primary Care) Vital Signs: Last Vital Signs Temp 96.9 F 09/18/24 11:35 Pulse 63 09/18/24 11:35 BP 124/62 09/18/24 11:35 Pulse Ox 98 09/18/24 11:35 Oxygen Delivery Method Room Air 09/18/24 11:35 BMI result Body Mass Index 23.8 Tobacco/Smoking Status: Tobacco use Status Tobacco use date assessed 09/18/24 09/18/24 11:39 Patient Tobacco Use Status Never used Tobacco 09/18/24 11:39 e-Cigarette/Vaping Use Never Used 09/18/24 11:39 Thrive Assessment: Date of Thrive Assessment Date Thrive assessed 09/17/24 09/18/24 11:39 Currently or been in a relationship where the following occur: No concerns reported Const General: alert; No acute distress Eyes Conjunctivae: conjunctivae normal Resp Auscultation: clear to auscultation bilaterally Cardio Rate: regular rate Rhythm: regular rhythm GI Inspection: Yes normal to inspection Extrem General: Yes normal to inspection and No edema Coding Level of Care Code Est Pt Level 4 (60577) Diagnoses Palpitations R00.2 Gastroesophageal reflux disease without esophagitis K21.9 Esophagitis presence: without esophagitis Mild intermittent asthma without complication J45.20 Asthma severity: mild Asthma persistence: intermittent Asthma complication type: uncomplicated Generalized anxiety disorder F41.1 Colon cancer screening Z12.11 Assessment & Plan Assessment & Plan (1) Palpitations: Code(s): R00.2 - Palpitations Category: Medical Plan: work pending but the blood work is within normal limits (2) GERD (gastroesophageal reflux disease): Code(s): K21.9 - Gastro-esophageal reflux disease without esophagitis Category: Medical Qualifiers: Esophagitis presence: without esophagitis Qualified Code(s): K21.9 - Gastro-esophageal reflux disease without esophagitis Plan: Avoid the foods that causes that usually spicy foods, tomato products, juices, coffee, soda and foods that your sensitive to. After eating do not lie down, allow 3-4 hours before in lie down. And keep the head of bed above 30 degrees to avoid the acid from going up. (3) Asthma: Code(s): J45.909 - Unspecified asthma, uncomplicated Category: Medical Qualifiers: Asthma severity: mild Asthma persistence: intermittent Asthma complication type: uncomplicated Qualified Code(s): J45.20 - Mild intermittent asthma, uncomplicated Plan: Patient on Flovent and albuterol (4) Generalized anxiety disorder: Comment: [facility] Code(s): F41.1 - Generalized anxiety disorder Category: Medical Plan: Continue with counseling and therapy. In the process of looking for a new psych (5) Colon cancer screening: Code(s): Z12.11 - Encounter for screening for malignant neoplasm of colon Category: Medical Plan: reminder about colon test Plan History of Present Illness The patient is a 54-year-old female presenting for a follow-up evaluation of palpitations and management of asthma and anxiety symptoms. She has a significant history of asthma, managed with the use of Flovent and albuterol inhalers as needed, primarily when allergy symptoms exacerbate. The patient also experiences anxiety, for which she is on hydroxyzine 25 mg twice a day and Lexapro 20 mg daily. Her palpitations are a current concern, although no immediate cause was identified during the consultation. Her medical history is significant for Gastroesophageal Reflux Disease (GERD) a nd lumbar spondylosis, the latter identified through diagnostic imaging performed in August. The patient's allergic rhinitis manifests as morning sneezing and nasal congestion, treated with hydroxyzine. The patient has been conscientiously attempting to manage chronic constipation, largely through improved dietary intake. Recent investigations, including blood work from September 10, revealed optimal cholesterol levels with an improved LDL of 83, and all other lab values, such as electrolytes, renal, and liver functions, were normal. Health Maintenance - Emphasized the importance of regular exercise, particularly stretching exercises, to alleviate mild lumbar spondylosis symptoms. - Discussed dietary modifications to improve chronic constipation symptoms and highlight the importance of hydration and fiber intake. - Reviewed medication adherence for asthma management and ensured prescriptions for inhalers were up to date. - Encouraged vitamin D intake and monitoring as part of bone health maintenance. Social History - Engages in exercise routines focusing on stretches and regular walking to support back health. - Actively managing diet to address symptoms of constipation. - Experiences allergies, manages symptoms with [id number] medications when necessary. Review of Systems - Respiratory: Reports morning sneezing and nasal congestion, responds to hydroxyzine. - Musculoskeletal: Denies knee pain, reports back pain attributed to mild arthritis. Physical Exam - Respiratory- Lungs clear to auscultation. - Musculoskeletal- No swelling in lower extremities. Results - Labs: Normal blood count, normal kidney function, liver function normal, LDL 83, triglycerides 73, normal vitamin B12, and vitamin D levels. - Imaging: Lumbar spine X-ray showed multilevel spondylosis, no fracture noted. Plan The therapeutic approach focused on managing this patient's asthma, allergic symptoms, and generalized anxiety disorder while evaluating the palpitations. Continued adherence to prescribed medications was essential for symptom control in asthma and anxiety disorders, while considering less sedating allergy medications such as Claritin. The incorporation of stretching exercises was advised to provide musculoskeletal support for the spine and alleviate lumbar spondylosis symptoms. The patient is counseled on dietary improvements to manage constipation, with a plan to monitor colonoscopy referral status. Patient was informed and verbally consented to the use of an ambient scribe for clinic note documentation during this visit. Discussion Notes During our discussion, we addressed the management of asthma symptoms, emphasizing regular inhaler use and evaluating response to treatment, particularly during allergy exacerbations. For anxiety management, we highlig hted adherence to the prescribed regimen while exploring alternatives to hydroxyzine for allergies. The patient was advised on strategies to manage mild spondylosis-related back pain effectively, including regular stretching and exercise to strengthen supporting musculature. Dietary and lifestyle adjustments form part of the care strategy to address chronic constipation, and we discussed expectations regarding the colonoscopy referral status. The importance of vitamin D monitoring was communicated, alongside engagement in physical activity and maintaining a healthy weight. Patient Instructions - Continue use of asthma inhalers as prescribed. - Consider trying Claritin or Apurva for allergy relief if hydroxyzine causes drowsiness. - Perform regular stretching exercises to relieve back pain. - Follow dietary recommendations to alleviate constipation. - Ensure consistent physical activity and adequate hydration. - Monitor for and report any new or worsening symptoms. - Keep up with annual screenings and monitor referral for colonoscopy. - Adhere to anxiety medications as prescribed; maintain regular follow-up for mental health support. Medications: New ibuprofen 400 mg PO Q8H PRN 30 tabs 0RF pain Changed From fluticasone propionate 110 mcg/actuation (Flovent HFA) 1 puff inhalation Q12H K21.9 - Gastro-esophageal reflux disease without esophagitis To fluticasone propionate 110 mcg/actuation 1 puff inhalation Q12H 12 grams 12RF K21.9 - Gastro-esophageal reflux disease without esophagitis Refilled albuterol sulfate 90 mcg/actuation 2 puffs inhalation Q4-6H PRN 8.5 grams 0RF shortness of breath or wheezing hydroxyzine HCl 25 mg PO BID 90 days PRN 90 tabs 0RF anxiety F41.1 - Generalized anxiety disorder escitalopram oxalate 20 mg PO DAILY 90 tabs 0RF F41.1 - Generalized anxiety disorder
[2024-09-18 11:35] VITALS: BP 124/62; PULSE 63; TEMP 36.1; O2SAT 98; BMI 23.8
--- OUTSIDE RECORDS SUMMARY | 2024-09-18 14:09 | XMS_ITS | Patient Health Record ---
Author Organization [employer] [facility] Address [address] [place] [address] Care Team Providers Care Ap Operator Name Role Phone JOSE GAMBOA M.D. 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
--- OUTSIDE RECORDS SUMMARY | 2024-09-18 14:09 | XMS_ITS | Clinical Summary ---
Author Organization [employer] [facility] Address [address] [facility] [address] 7[address] [place] [address] Care Team Providers Care State Historical Society Director Name Role Phone Unavailable Primary Care Provider [...] Most Recently Relevant to Health Maintenance Insurance [facility] MEDICAID STAND ADULT
--- OUTSIDE RECORDS SUMMARY | 2024-09-18 14:09 | XMS_ITS | Clinical Summary ---
Author Organization [employer] [facility] ity Address [address] [place] [address] Care Team Providers Care Systems Administration Analyst Name Role Phone Andrew Garcia MD Primary Care Provider [phone] Surgical History Surgery Date Site/Laterality Comments OTHER [...] Vaccines (1 of 2) 2019 COVID-19 Vaccine ( - 2023-2 5 season) 2024 Influenza Vaccine (Season Ended) 2025 HIB Vaccines Aged Out No longer eligi [...] age to complete this topic Meningococcal B Vaccine Aged Out No l onger eligible based on patient's age to complete [...] age to complete this topic Care Teams Systems Administration Analyst Relationship Specialty Start Date End Date Andrew Garcia MD [address] [place] [address] [address] [facility] [place] [address] PCP - General Internal Medicine 01/02/14
== END 2024-09-18 12:08 | disposition home or self-care (01) ==
PROVIDERS: PCP Internal Medicine; Visit Provider Internal Medicine
DX: R00.2 Palpitations (principal); K21.9 Gastro-esophageal reflux disease without esophagitis; J45.20 Mild intermittent asthma, uncomplicated; F41.1 Generalized anxiety disorder; Z12.11 Encounter for screening for malignant neoplasm of colon

== ENCOUNTER → 2024-09-18 11:33 | Outpatient (BNVA) | payer OTHER, SELFPAY | PROVIDERS: PCP Internal Medicine; Visit Provider Internal Medicine | DX: R00.2 Palpitations (principal); K21.9 Gastro-esophageal reflux disease without esophagitis; J45.20 Mild intermittent asthma, uncomplicated; F41.1 Generalized anxiety disorder | CPT/HCPCS: 99212 ==

== ENCOUNTER → 2024-10-04 07:41 | Outpatient (BNV) | payer OTHER, SELFPAY | PROVIDERS: PCP Internal Medicine; Visit Provider Internal Medicine | DX: I47.10 Supraventricular tachycardia, unspecified (principal) | CPT/HCPCS: 93244 ==

== ENCOUNTER → 2024-10-04 07:42 | Outpatient (REF) | payer OTHER, SELFPAY ==
--- OUTSIDE RECORDS SUMMARY | 2024-10-04 07:46 | XMS_ITS | Clinical Summary ---
Author Organization [employer] [facility] Address [address] [facility] [place] [address] Care Team Providers Care Trimmer Climber Name Role Phone Unavailable Primary Care Provider [...] Most Recently Relevant to Health Maintenance Insurance [facility] MEDICAID STAND ADULT
--- OUTSIDE RECORDS SUMMARY | 2024-10-04 07:46 | XMS_ITS | Clinical Summary ---
Author Organization [employer] [facility] ity Address [address] [place] [address] Care Team Providers Care Field Manager Name Role Phone Andrew Garcia MD Primary Care Provider [phone] Surgical History Surgery Date Site/Laterality Comments OTHER [...] age to complete this topic Care Teams Field Manager Relationship Specialty Start Date End Date Andrew Garcia MD [address] [place] [address] Dr [address] [facility] [place] [address] PCP - General Internal Medicine 01/02/14
--- OUTSIDE RECORDS SUMMARY | 2024-10-04 07:46 | XMS_ITS | Patient Health Record ---
Author Organization [employer] [facility] Address [address] [place] [address] Care Team Providers Care Professor Of Architecture Name Role Phone JOSE GAMBOA M.D. 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
== END ==
LOC: HO.CARD 07:42
PROVIDERS: PCP Internal Medicine; Visit Provider Internal Medicine
DX: R00.2 Palpitations (principal)
CPT/HCPCS: 93242

== ENCOUNTER 2024-10-24 15:00 | Outpatient (AMB) | payer OTHER, SELFPAY ==
--- OUTSIDE RECORDS SUMMARY | 2024-10-24 15:03 | XMS_ITS | Patient Health Record ---
Author Organization [employer] [facility] Address [address] [place] [address] Care Team Providers Care Jig Filler Name Role Phone JOSE GAMBOA M.D. 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
--- OUTSIDE RECORDS SUMMARY | 2024-10-24 15:03 | XMS_ITS | Clinical Summary ---
Author Organization [employer] [facility] Address [address] [place] [address] Care Team Providers Care Home Appraiser Name Role Phone Unavailable Primary Care Provider [...]
--- OUTSIDE RECORDS SUMMARY | 2024-10-24 15:03 | XMS_ITS | Clinical Summary ---
Author Organization [employer] [facility] ity Address [address] [place] [address] Care Team Providers Care Income Tax Expert Name Role Phone Andrew Garcia MD Primary Care Provider [phone] Surgical History Surgery Date Site/Laterality Comments OTHER [...] age to complete this topic Care Teams Income Tax Expert Relationship Specialty Start Date End Date Andrew Garcia MD [address] [place] [address] Dr [address] [facility] [place] [address] PCP - General Internal Medicine 01/02/14
[2024-10-24 15:07] VITALS: BP 106/68; PULSE 116; TEMP 37.1; O2SAT 98
--- NOTE | 2024-10-24 15:07 | MHC.OFFWIV ---
Intake Vital Signs 10/24/24 15:07 10/24/24 15:16 Height 5 ft 4 in BMI Reason not done Patient refused/unable BP 106/68 Blood Pressure Location Lt brachial Position Sitting Pulse 116 H 110 H Pulse Source Pulse Oximeter Pulse Oximeter Temp 98.7 F Temp Source Oral Pulse Oximetry (%) 98 96 Oxygen Delivery Method Room Air Room Air Intake Visit Reasons: EP Diff breathing Patient Tobacco Use Status: Never used Tobacco Allergies No Known Allergies Allergy (Verified 10/24/24 15:08) Do you need a note to return to daycare/school/sports/work: No HPI HPI Comments History of Present Illness Details History of Present Illness - The patient is a 54-year-old female with past med hx of asthma presenting with wheezing and shortness of breath. - Symptoms began one week ago after exposure to sand while cleaning a bearded dragon tank. - Describes intense wheezing, both inspiratory and expiratory, which has not improved with her usual albuterol inhaler, despite using it hourly. - Denies other respiratory symptoms such as fever, cough, and congestion, sinus pain or ear pain. - Previous similar exacerbation cleared within a few days without such persistent symptoms. - History suggests allergen exposure as the inciting event. Physical Exam General: Cooperative, healthy appearing, comfortable, no acute distress and well developed Orientation: Patient oriented x3 Limitations: No limitations Head: Normal to inspection Ears: Hearing grossly normal bilaterally, no ear pain Nose: Normal External nose present, no congestion Face and sinus: Normal facial exam, no sinus pain Eyes: Appearance normal, both eyes and all related structures Neck: Normal visual inspection and Yes full ROM Respiratory: Inspiratory and expiratory wheeze noted, normal respiratory effort, able to speak in complete sentences Cardiovascular: tachycardic rate and regular rhythm. Normal S1 and S2 Skin: No rashes or lesions noted Neuro: Patient oriented x3 Extremities: Normal to inspection [facility] Medical History Left ear pain Left patella fracture Right ACL tear Patellar dislocation Impaired glucose tolerance GERD (gastroesophageal reflux disease) Attention deficit disorder Allergic rhinitis Asthma Surgical History No history of previous surgery Family History Mother No problems noted. Father No problems noted. Social History Housing: Apartment Alcohol intake: never Patient Tobacco Use Status: Never used Tobacco e-Cigarette/Vaping Use: Never Used Second Hand Smoke Exposure: No service: No Current occupational status: unemployed Cognitive needs: No Hearing needs: No Vision needs: No Review of Systems Const All systems reviewed & are unremarkable except as noted in HPI and below Physical Exam Vital Signs: Last Vital Signs Temp 98.7 F 10/24/24 15:07 Pulse 116 H 10/24/24 15:07 BP 106/68 10/24/24 15:07 Pulse Ox 98 10/24/24 15:07 Oxygen Delivery Method Room Air 10/24/24 15:07 Office Meds prednisone 20 mg tablet Performing Provider: Shilpa Noel PA-C Performing Location: [facility] Administered by: Shilpa Noel PA-C on 10/24/24 15:26 Dose Route Admin Location Dispensed Lot Number Expiration Date [employer] 20 mg PO 2 tab [id number] 09/10/25 Assessment & Plan Assessment & Plan (1) Asthma with acute exacerbation: Code(s): J45.901 - Unspecified asthma with (acute) exacerbation Qualifiers: Asthma severity: mild Asthma persistence: persistent Qualified Code(s): J45.31 - Mild persistent asthma with (acute) exacerbation Plan: Management of the asthma exacerbation due to allergic reaction involves a structured approach with prednisone administration and allergy symptom management. A 40 mg daily dose of prednisone is prescribed for four days to combat inflammation. Benadryl is suggested for auxiliary nocturnal symptom control. Emphasis was placed on avoiding future allergen exposure such as the sand, which is identified as a potential trigger. The prescription is sent to the designated [facility] pharmacy. Patient was informed and verbally consented to the use of an ambient scribe for clinic note documentation during this visit. Orders: Orders AMB Prednisone Adult Dose Today J45.31 - Mild persistent asthma with (acute) exacerbation Medications: New prednisone 40 mg (2 x 20 mg) PO QAM 8 tabs 0RF prednisone 20 mg PO ONCE 2 tabs 0RF wheezing J45.31 - Mild persistent asthma with (acute) exacerbation Coding Level of Care Code Est Pt Level 3 (71463) Diagnoses Mild persistent asthma with acute exacerbation J45.31 Asthma severity: mild Asthma persistence: persistent
[2024-10-24 15:16] VITALS: PULSE 110; O2SAT 98
--- NOTE | 2024-10-24 15:36 | AM.OFFWIN_ITS ---
Intake Vital Signs 10/24/24 15:07 10/24/24 15:16 Height 5 ft 4 in BMI Reason not done Patient refused/unable BP 106/68 Blood Pressure Location Lt brachial Position Sitting Pulse 116 H 110 H Pulse Source Pulse Oximeter Pulse Oximeter Temp 98.7 F Temp Source Oral Pulse Oximetry (%) 98 98 Oxygen Delivery Method Room Air Room Air Intake Visit Reasons: EP Diff breathing Patient Tobacco Use Status: Never used Tobacco Allergies No Known Allergies Allergy (Verified 10/24/24 15:08) HPI HPI Comments History of Present Illness Details History of Present Illness - The patient is a 54-year-old female wi th past med hx of asthma presenting with wheezing and shortness of breath - Symptoms began one week ago after expo sure to sand while cleaning a bearded dragon tank. - Describes intense wheezing, both inspi ratory and expiratory, which has not improved with her usual albuterol inhaler, despite using it hourly for the last few days. - Denies other respiratory symptoms such as fever, cough, sinus pain, ear pain and congestion. - Previous similar exacerbation cleared within a few days without such persistent symptoms. - History suggests allergen exposure as the inciting event. Physical Exam General: Cooperative, healthy appearing, comfortable, no acute distress and well developed Orientation: Patient oriented x3 Limitations: No limitations Head: Normal to inspection Ears: Hearing grossly normal bilaterally, no ear pain Nose: Normal External nose present, no congestion Face and sinus: Normal facial exam, no sinus pain Eyes: Appearance normal, both eyes and all related structures Neck: Normal visual inspection and Yes full ROM Respiratory: Inspiratory and expiratory wheeze noted, normal respiratory effort, able to speak in complete sentences Cardiovascular: tachycardic rate and regular rhythm. Normal S1 and S2 Skin: No rashes or lesions noted Neuro: Patient oriented x3 Extremities: Normal to inspection [facility] Medical History Left ear pain Left patella fracture Right ACL tear Patellar dislocation Impaired glucose tolerance GERD (gastroesophageal reflux disease) Attention deficit disorder Allergic rhinitis Asthma Surgical History No history of previous surgery Family History Mother No problems noted. Father No problems noted. Social History Housing: Apartment Alcohol intake: never Patient Tobacco Use Status: Never used Tobacco e-Cigarette/Vaping Use: Never Used Second Hand Smoke Exposure: No service: No Current occupational status: unemployed Cognitive needs: No Hearing needs: No Vision needs: No Physical Exam Vital Signs: Last Vital Signs Temp 98.7 F 10/24/24 15:07 Pulse 110 H 10/24/24 15:16 BP 106/68 10/24/24 15:07 Pulse Ox 96 10/24/24 15:16 Oxygen Delivery Method Room Air 10/24/24 15:16 Office Meds prednisone 20 mg tablet Performing Provider: Shilpa Noel PA-C Performing Location: [facility] Administered by: Shilpa Noel PA-C on 10/24/24 15:26 Dose Route Admin Location Dispensed Lot Number Expiration Date [employer] 20 mg PO 2 tab [id number] 09/10/25 Assessment & Plan Assessment & Plan (1) Asthma with acute exacerbation: Code(s): J45.901 - Unspecified asthma with (acute) exacerbation Qualifiers: Asthma persistence: persistent Asthma severity: mild Qualified Code(s): J45.31 - Mild persistent asthma with (acute) exacerbation Plan: Gave pt 40mg prednisone in office. Management of the asthma exacerbation due to allergic reaction involves a structured approach with prednisone administration and allergy symptom management. A 40 mg daily dose of prednisone is prescribed for four days to combat inflammation. Benadryl is suggested for auxiliary symptom control. Emphasis was placed on avoiding future allergen exposure such as the sand in the bearded dragon tank, which is identified as a potential trigger. The prescription is sent to the designated [facility] pharmacy. Patient was informed and verbally consented to the use of an ambient scribe for clinic note documentation during this visit. Orders: Orders AMB Prednisone Adult Dose Today J45.31 - Mild persistent asthma with (acute) exacerbation Medications: New prednisone 40 mg (2 x 20 mg) PO QAM 8 tabs 0RF Coding Level of Care Code Est Pt Level 3 (67298) Diagnoses Mild persistent asthma with acute exacerbation J45.31 Asthma persistence: persistent Asthma severity: mild
== END 2024-10-24 15:31 | disposition home or self-care (01) ==
PROVIDERS: PCP Internal Medicine; Visit Provider Physician Assistant
DX: J45.31 Mild persistent asthma with (acute) exacerbation (principal)

== ENCOUNTER → 2024-10-24 15:00 | Outpatient (BNVA) | payer OTHER, SELFPAY | PROVIDERS: PCP Internal Medicine; Visit Provider Physician Assistant | DX: J45.31 Mild persistent asthma with (acute) exacerbation (principal) | CPT/HCPCS: 99212 ==

== ENCOUNTER 2025-05-31 15:00 | Outpatient (AMB) | payer OTHER, SELFPAY ==
--- NOTE | 2025-05-31 15:02 | MHC.PC.OV ---
Vital Signs 05/31/25 15:04 Height 5 ft 4 in Weight 135 lb 4 oz BMI 23.2 BP 98/70 Respiration 16 Pulse 101 H Pulse Source Pulse Oximeter Temp 97.3 F Temp Source Temporal Artery Scan Pulse Oximetry (%) 95 Oxygen Delivery Method Room Air Intake Visit Reasons: Discuss PT referral Machine Pie Maker Required: No Accompanied by: Self / Same As Patient Allergies No Known Allergies Allergy (Verified 05/31/25 15:03) Medication List - Last Reconciled 05/31/25 by Andrew Garcia MD albuterol sulfate 90 mcg/actuation 2 puffs inhalation Q4-6H PRN escitalopram oxalate 20 mg PO DAILY fluticasone propionate 110 mcg/actuation 1 puff inhalation Q12H hydroxyzine HCl 25 mg PO BID PRN 90 days ibuprofen 400 mg PO Q8H PRN Tobacco use date assessed: 09/18/24 Dental Screening Dental Screen Date: 08/21/24 HPI Discuss PT referral HPI Details bilateral wrist pain intermittent for years but increasing severity deny fall or trauma, , 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 HPI Comments History of Present Illness Details History of Present Illness The patient is a 54-year-old female presenting for evaluation of an acute problem, primarily left wrist pain. She has a history of intermittent bilateral wrist pain for years, but a recent episode of severe left wrist pain prompted an emergency room visit on April 28, 2025. An X-ray performed at the ER was negative for an obvious fracture, and she was given a splint. Currently, both of her wrists are painful, though she denies any numbness. In addition to her wrist pain, the patient reports pain along her entire right side, including her foot, knee, and hip. The right foot pain gives her a sensation that her foot is detached when walking, causing a limp. She experiences sharp pain in her right knee when stepping, which makes her feel unbalanced. Her past medical history is significant for a pulmonary nodule seen in 2018, asthma, and generalized anxiety disorder, for which she takes hydroxyzine and Lexapro. She also has a known history of arthritis and spondylosis in her back. Regarding health maintenance, her last complete blood work in August was normal. Her mammogram is up to date, but she has been reminded about needing a colonoscopy. The patient reports poor sleep, averaging only four hours a night, which she believes aggravates her joint pain. Health Maintenance The patient has been reminded that she is due for a screening colonoscopy. A referral will be placed for a gastroenterology consult. 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 - Functional Status: She reports limping due to right foot pain and feelings of imbalance related to right knee pain. - Sleep: Reports poor sleep quality, sleeping only about four hours per night. Results - Labs: Complete blood work from August was normal, including CBC, electrolytes, cholesterol, folic acid, and thyroid levels. - Imaging: Left wrist X-ray from April 28, 2025, was negative for obvious fracture. - A prior spine X-ray showed spondylosis. [facility] Medical History Left ear pain Left patella fracture Right ACL tear Patellar dislocation Impaired glucose tolerance GERD (gastroesophageal reflux disease) Attention deficit disorder Allergic rhinitis Asthma Surgical History No history of previous surgery Family History Mother No problems noted. Father No problems noted. Social History Housing: Apartment Alcohol intake: never Patient Tobacco Use Status: Never used Tobacco e-Cigarette/Vaping Use: Never Used Second Hand Smoke Exposure: No service: No Current occupational status: unemployed Cognitive needs: No Hearing needs: No Vision needs: No Questionnaire Thrive Questionnaire Date Thrive assessed: 09/17/24 I am a: Patient What is your living situation today?: I have a steady place to live Within the past 12 months, did the food you bought not last and you didn't have the money to get more?: I choose not to answer this question Within the past 12 months, did you worry whether your food would run out before you got money to buy more?: I choose not to answer this question Do you have trouble paying for medicines?: Yes Do you have trouble getting transportation to medical appointments?: No Do you have trouble paying your heating and electricity bill?: Yes Do you have trouble taking care of your child, family member or friend?: No Do you have trouble with day-to-day activities such as bathing, preparing meals, shopping, managing finances, etc.?: No Are you currently unemployed and looking for a job?: No Are you interested in more education?: No Currently or been in a relationship where the following occur: No concerns reported THRIVE Score: 1 WINNIE-7 AMB Questionnaire WINNIE-7 Date WINNIE - 7 assessed: 08/21/24 Source: Developed by Drs. Wes Martines, Vanesa Griffin, Laz Franco and colleagues, with an educational val from [employer]. Review of Systems Narrative Review of Systems - Musculoskeletal: Reports intermittent bilateral wrist pain that comes and goes, recently severe in the left wrist. - Reports pain in the right foot, right knee, and right hip. - She describes the right knee pain as sharp upon stepping. - Reports known arthritis in her back. - Denies joint swelling. - Neurological: Reports feeling unbalanced due to her knee pain. - Denies numbness in the hands or wrists. - Psychiatric: Reports her anxiety is doing well on her current medications. - Constitutional: Reports poor sleep, averaging about four hours per night. Physical exam (Primary Care) Vital Signs: Last Vital Signs Temp 97.3 F 05/31/25 15:04 Pulse 101 H 05/31/25 15:04 Resp 16 05/31/25 15:04 BP 98/70 05/31/25 15:04 Pulse Ox 95 05/31/25 15:04 Oxygen Delivery Method Room Air 05/31/25 15:04 BMI result Body Mass Index 23.2 Tobacco/Smoking Status: Tobacco use Status Tobacco use date assessed 09/18/24 05/31/25 15:09 Patient Tobacco Use Status Never used Tobacco 05/31/25 15:09 e-Cigarette/Vaping Use Never Used 05/31/25 15:09 Thrive Assessment: Date of Thrive Assessment Date Thrive assessed 09/17/24 05/31/25 15:09 Currently or been in a relationship where the following occur: No concerns reported Narrative Physical Exam - Musculoskeletal - Right Lower Extremity: No tenderness on palpation of the anterior or posterior knee. - Tenderness noted on palpation over the lateral hip, suggestive of bursitis. - Mild pain noted with forward movement of the leg. - Musculoskeletal - Right Upper Extremity: Pain reported by patient on lowering of the arm. Const General: alert; No acute distress Eyes Conjunctivae: conjunctivae normal Resp Auscultation: clear to auscultation bilaterally Cardio Rate: regular rate Rhythm: regular rhythm GI Inspection: Yes normal to inspection Extrem Other: tender on the thumb tendons on the bilateral wrist with no swelling and no redness, tender on the right posterior Achilles, tender on the anteromedial knee area with no redness no swelling, tender on abduction of the right arm with no problems with range of motion. General: Yes normal to inspection and No edema Coding Level of Care Code Est Pt Level 4 (31594) Add On Problem Visit Only Diagnoses Left wrist pain M25.532 Bilateral wrist pain M25.531; M25.532 Generalized anxiety disorder F41.1 Gastroesophageal reflux disease without esophagitis K21.9 Esophagitis presence: without esophagitis Colon cancer screening Z12.11 Achilles tendinitis of right lower extremity M76.61 Knee pain, right M25.561 Right shoulder pain M25.511 Assessment & Plan Assessment & Plan (1) Left wrist pain: Code(s): M25.532 - Pain in left wrist Category: Medical (2) Bilateral wrist pain: Code(s): M25.531 - Pain in right wrist; M25.532 - Pain in left wrist Category: Medical (3) Generalized anxiety disorder: Comment: [facility] Code(s): F41.1 - Generalized anxiety disorder Category: Medical (4) GERD (gastroesophageal reflux disease): Code(s): K21.9 - Gastro-esophageal reflux disease without esophagitis Category: Medical Qualifiers: Esophagitis presence: without esophagitis Qualified Code(s): K21.9 - Gastro-esophageal reflux disease without esophagitis (5) Colon cancer screening: Code(s): Z12.11 - Encounter for screening for malignant neoplasm of colon Category: Medical (6) Achilles tendinitis of right lower extremity: Code(s): M76.61 - Achilles tendinitis, right leg Category: Medical (7) Knee pain, right: Code(s): M25.561 - Pain in right knee Category: Medical (8) Right shoulder pain: Code(s): M25.511 - Pain in right shoulder Category: Medical Plan Plan Patient was informed and verbally consented to the use of an ambient scribe for clinic note documentation during this visit. 1. Bilateral Wrist Tendinitis The patient's bilateral wrist pain, which occurs without numbness, is consistent with tendinitis. The plan is to refer her for occupational therapy for both hands to learn exercises and proper mechanics. 2. Right-Sided Musculoskeletal Pain The patient presents with multifactorial pain in her right knee, hip, and foot. Exam findings suggest possible trochanteric bursitis of the hip. To further evaluate her knee pain, X-rays of both knees will be obtained. A comprehensive referral to physical therapy will be made to address the knee, hip, and foot pain. 3. Generalized Anxiety Disorder The patient reports her anxiety is well-controlled with her current medications, Lexapro and hydroxyzine. She will continue her current medication regimen. Discussion Notes I discussed with the patient that her bilateral wrist pain is likely tendinitis, given the absence of numbness, and recommended occupational therapy. For her right-sided pain complex involving the foot, knee, and hip, I explained that physical therapy would be beneficial for teaching her appropriate exercises. I have ordered X-rays for both knees to further evaluate her knee pain. We also discussed the importance of sleep, as her poor sleep likely aggravates her joint pain. I have placed a referral for a screening colonoscopy as part of her health maintenance. I advised that using heat on her joints may provide relief. Patient Instructions - You may use heat on your painful joints to help with discomfort. - You can take ibuprofen for pain as needed, but be aware that it can cause stomach upset. - We have sent a referral for occupational therapy for your hands and wrists. - We have also sent a referral for physical therapy to help with the pain in your right foot, knee, and hip. - When the referral coordinators call, please let them know where you would like to have your therapy sessions. - An order has been placed for X-rays of both your knees, which you can have done at any time. - Our office will be in touch to schedule a colonoscopy for you. Orders: Orders OT Evaluation and Treatment Today M25.531 - Pain in right wrist, M25.532 - Pain in left wrist PT Evaluation and Treatment Today M25.511 - Pain in right shoulder, M25.561 - Pain in right knee, M76.61 - Achilles tendinitis, right leg XR knee standing BI Today M76.61 - Achilles tendinitis, right leg Referrals Gastroenterology Referral Z12.11 - Encounter for screening for malignant neoplasm of colon
[2025-05-31 15:04] VITALS: BP 98/70; PULSE 101; RESP 16; TEMP 36.3; O2SAT 95; BMI 23.2
--- OUTSIDE RECORDS SUMMARY | 2025-05-31 16:16 | XMS_ITS | Patient Health Record ---
Author Organization [employer] [facility] Address [address] [place] [address] Care Team Providers Care Consumer Lending Manager Name Role Phone JOSE AGMBOA M.D. Primary Care Provider [place] DAVID Boothe Unavailable [phone] Reason For Referral No Information Medications Medication SIG (Take, Route, Frequency, Duration) Notes Start Date End Date Status ProAir HFA 108 (90 Base) MCG/ACT TAKE 2 PUFFS BY MOUTH EVERY 6 HOURS Inhalation; Duration: 25 Active Omeprazole 20 MG TAKE 1 CAPSULE BY MO UTH EVERY DAY Oral; Duration: 30 Active hydrOXYzine HCl 25 MG TAKE 1 3 TABLETS B Y MOUTH ONCE DAILY NEEDED FOR 30 DAYS Oral; Duration: 30 Active Escitalopram Oxalate 10 MG TAKE 1 TABLET BY MOUTH EVERY DAY Oral; Duration: 30 Active Clobetasol Propionate 0.05 % 1 [...] W/U Status Risk Notes Problem Pruritus vulvae (14545910) 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
--- OUTSIDE RECORDS SUMMARY | 2025-05-31 16:16 | XMS_ITS | Clinical Summary ---
Author Organization [employer] [facility] Address [address] [place] [address] Care Team Providers Care Girls Swimming Coach Name Role Phone Unavailable Primary Care Provider [...] Screening 1969 SDOH Screening 1969 Sigmoidoscopy 1969 Disability Screening 1969 Alcohol/Substance Use Screening 1981 Hepatitis C Screening 1987 Hepatitis B Vaccines (1 of 3 - 19+ 3-dose series) 1988 Pap Smear 1990 Cervical Cancer Screening 1999 HPV/Cotest 1999 Mammogram 2009 Pneumococcal Vaccine: 50+ Years (1 of 1 - PCV) 2019 Zoster Vaccines (1 of 2) 2019 Tobacco Screening 07/11/2024 07/11/2023 COVID-19 Vaccine (1 - 2024-2 6 season) 2025 Influenza Vaccine (#1) 2025 9, 03/24/2016 DTaP/Tdap/Td Vaccines (2 - T d or [...] Most Recently Relevant to Health Maintenance Insurance [facility] STAND ADULT
--- OUTSIDE RECORDS SUMMARY | 2025-05-31 16:16 | XMS_ITS | Clinical Summary ---
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 30 tablet 04/28/2025 Encounters Date Type Department Care Team Description 04/27/2025 11:21 PM EST - 04/28/2025 12:49 AM EST Emergency [facility] Emergency [address] [place] [address] Wrist pain, acute, left (Primary Dx) Discharge Disposition: Home or Self Care from Last 3 Months Surgical History Surgery Date Site/Laterality Comments OTHER [...] on file Sexual Orientation Not on file Last Filed Vital Signs Vital Sign Reading Time Taken Comments Blood Pressure 122/78 04/27/2025 11:27 PM EST Pulse 100 04/27/2025 11:27 PM EST Temperature 36.7 C (98.1 F) 04/27/2025 11:27 PM EST Respiratory Rate 20 04/27/2025 11:27 PM EST Oxygen Saturation 98% 04/27/2025 11:27 PM EST Inhaled Oxygen Concentration - - Weight 59 kg (130 lb) 04/27/2025 11:27 PM EST Height 162.6 cm (5' 4 ) 04/27/2025 11:27 PM EST Body Mass Index 22.31 04/27/2025 11:27 PM EST Plan of Treatment Health Maintenance Due Date Last Done Comments Breast Cancer Screening 1969 Colorectal Cancer Screening: Colonoscopy 1969 Hepatitis B Vaccines (1 of 3 - 19+ 3-dose series) 1988 Pneumococcal Vaccine: 50+ Years (1 of 2 - PCV) 1988 Cervical Cancer Screening: P ap Smear 1990 Zoster Vaccines (1 of 2) 2019 Depression Screening 06/13/2024 COVID-19 Vaccine (1 - 2024-2 6 season) 2025 Influenza Vaccine (#1) 2025 9, 03/24/2016 HIV Screening 04/28/2025 Hepatitis C Screening 04/28/2025 Social Influencers of Health Screening 04/28/2025 DTaP,Tdap,and Td Vaccines (2 - Td or Tdap) 03/24/2026 03/24/2016 RSV Immunization Adult Patients (1 - 1-dose 75+ series) 2044 HIB [...] to complete this topic RSV Immunization Patients Under 20 months Aged Out No longer eligible b ased on patient's age to complete this topic Varicella Vaccines Aged Out No longer eligible based on patient's age to complete this topic Procedures Procedure Name Priority Date/Time Associated Diagnosis Comments XR WRIST 3+ VIEWS LEFT STAT 04/27/2025 11:50 PM EST from Last 3 Months Results * XR Wrist 3+ Views Left (04/27/2025 11:50 PM EST) Anatomical Region Laterality Modality Upper Extremities, Wrist Left Radiogr aphic Imaging 04/28/2025 7:04 AM EST Impressions 04/28/2025 7:06 AM EST No acute fracture or dislocation seen. -------- FINAL REPORT -------- Dictated By: Herman Billings Dictated Date: 04/28/2025 07:04 ET Assigned Physician: Herman Billings Reviewed and Electronically Signed By: Herman Billings Signed Date: 04/28/2025 07:06 ET Workstation ID: [id number] Transcribed By: Self Edit Transcribed Date: 04/28/2025 07:04 ET Narrative 04/28/2025 7:06 AM EST EXAMINATION: Left wrist 3 views. CLINICAL INDICATION: wrist pain. COMPARISON: None. FINDINGS: The smaller lesion bone fragment adjacent to the distal radius likely all levels and injury. There is no evidence of acute fracture, dislocation or subluxation seen the soft tissues are normal. Procedure Note Herman Billings MD - 04/28/2025 EXAMINATION: Left wrist 3 views. CLINICAL INDICATION: wrist pain. COMPARISON: None. FINDINGS: The smaller lesion bone fragment adjacent to the distal radiuslikely all levels and injury. There is no evidence of acute fracture,dislocation or subluxation seen the soft tissues are normal. IMPRESSION: No acute fracture or dislocation seen. 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
== END 2025-05-31 15:28 | disposition home or self-care (01) ==
LOC: HO.HMCH 15:01
PROVIDERS: PCP Internal Medicine; Visit Provider Internal Medicine
DX: M25.532 Pain in left wrist (principal); M25.531 Pain in right wrist; F41.1 Generalized anxiety disorder; K21.9 Gastro-esophageal reflux disease without esophagitis; Z12.11 Encounter for screening for malignant neoplasm of colon; M76.61 Achilles tendinitis, right leg; M25.561 Pain in right knee; M25.511 Pain in right shoulder

== ENCOUNTER → 2025-05-31 15:00 | Outpatient (BNVA) | payer OTHER, SELFPAY | PROVIDERS: PCP Internal Medicine; Visit Provider Internal Medicine | DX: M25.531 Pain in right wrist (principal); M25.532 Pain in left wrist; F41.1 Generalized anxiety disorder; K21.9 Gastro-esophageal reflux disease without esophagitis; M76.61 Achilles tendinitis, right leg; M25.561 Pain in right knee; M25.511 Pain in right shoulder | CPT/HCPCS: 99212 ==